=== PATIENT | male | born 1980 | race Caucasian/White ===

== ENCOUNTER 2017-05-21 12:37 | Emergency (ER) | payer BC ==
[~2017-05-21] VITALS: Ht 175.3 cm; Wt 77.1 kg
[~2017-05-21 12:37] MED LIST: DEPAKOTE PO; MOBIC7.5 MG/5 M PO; PENICILLIN V P500 MG PO; PROZAC PO; ROBAXIN500 MG PO
[2017-05-21] MEDS ORDERED: PROZAC40 M1 PO (13:41)
[2017-05-21] MEDS ORDERED: GEODON20 MG PO (13:42)
[2017-05-21] MEDS ORDERED: AMOXICILLIN875 MG PO (13:42)
[2017-05-21 14:23] LABS: SALICYLATE <4.0 mg/dL
[2017-05-21 14:25] LABS: ACETAMINOPHEN <10 ug/mL
== END 2017-05-21 18:08 | disposition short-term general hospital (02) ==
LOC: CED 12:37
PROVIDERS: Emergency Medicine
DX: T42.4X2A Poisoning by benzodiazepines, intentional self-harm, initial encounter (principal); S61.512A Laceration without foreign body of left wrist, initial encounter; F32.9 Major depressive disorder, single episode, unspecified; F17.200 Nicotine dependence, unspecified, uncomplicated; Z79.899 Other long term (current) drug therapy; X83.8XXA Intentional self-harm by other specified means, initial encounter; Y92.9 Unspecified place or not applicable
CPT/HCPCS: 36415; 99285; G0480

== ENCOUNTER 2017-05-21 14:00 | Inpatient (IN) | payer BC ==
[~2017-05-21] VITALS: Ht 175.3 cm; Wt 77.1 kg
--- NOTE | ~2017-05-21 | PN ---
Unit #: [id number] #: [id number] Patient: RITU JEFF [id number] [facility] [address] [place] [address] [id number] I MR#: [id number] NAME: RITU JEFF ROOM: P256 Age: 36 Sex: M Admission Date: 05/21/2017 : 1980 Attending Physician: Mariluz Sevilla M.D. Admitting Physician: Mariluz Sevilla M.D. Primary Care Physician: Rubina Guerra PROGRESS NOTES DATE OF SERVICE 05/24/2017 DISCUSSION Mr. Jeff is a 36-year-old white male who was seen today. Chart was reviewed and case was discussed with the staff. He has been anxious, withdrawn, and rather seclusive to himself. Meanwhile, he has been cooperative with the treatment recommendations and has been taking the medications and tolerating them fairly well. MENTAL STATUS EXAMINATION Young white male who is casually dressed with fair personal hygiene, appears to be in no acute distress or discomfort. He was awake and alert with impaired attention and concentration. His mood is anxious with congruent affect. He denies any suicidal or homicidal ideations. His insight and judgment remain slightly impaired. TREATMENT PLAN 1. We will continue him on his current treatment protocol. We will monitor his response to the medications and make further adjustments as needed. 2. We will continue to follow up. Dictated by... Mariluz Sevilla M.D. IAA/bzg TD: 05/25/2017 08:37 JOB #: [id number] [facility] PROGRESS NOTES Page 1 of 1 X Mariluz Sevilla MD X PROGRESS NOTE
--- NOTE | ~2017-05-21 | PN ---
Unit #: [id number] #: [id number] Patient: RITU JEFF [id number] [facility] [address] [place] [address] [id number] MR#: [id number] NAME: RITU JEFF ROOM: P256 Age: 36 Sex: M Admission Date: 05/21/2017 : 1980 Attending Physician: Mariluz Sevilla M.D. Admitting Physician: Mariluz Sevilla M.D. Primary Care Physician: Rubina Guerra PROGRESS NOTES DATE 05/22/2017 DISCUSSION Mr. Jeff is a 36-year-old, white male with mood disorder who was seen today and chart was reviewed and case was discussed with the staff. He remains anxious, withdrawn, depressed and rather seclusive to himself with blunted affect and minimal interaction. Meanwhile, he has been taking medication and tolerating them fairly with no reported side effects. MENTAL STATUS EXAM Young white male who was casually dressed with fair personal hygiene, appears to be in no acute distress or discomfort. He was awake and alert on interaction with intact orientation. His mood was anxious with congruent affect. He denies any suicidal or homicidal ideation. His insight and judgement remains slightly impaired. TREATMENT PLAN 1. We will continue him on his current medications and treatment protocol. We will monitor his response to the medication and make further adjustments as needed. 2. We will continue to follow up. Dictated by... Rubina Murrieta/aiden TD: 05/23/2017 04:34 JOB #: [id number] Unit #: [id number] #: [id number] Patient: RITU JEFF PROGRESS NOTES Page 1 of 1 X Mariluz Sevilla MD X PROGRESS NOTE
--- NOTE | ~2017-05-21 | PN ---
Unit #: [id number] #: [id number] Patient: RITU JEFF [id number] [facility] [address] [place] [address] [id number] I MR#: [id number] NAME: RITU JEFF ROOM: P256 Age: 36 Sex: M Admission Date: 05/21/2017 : 1980 Attending Physician: Mariluz Sevilla M.D. Admitting Physician: Mariluz Sevilla M.D. Primary Care Physician: Rubina Guerra PROGRESS NOTES DATE 05/23/2017 DISCUSSION Mr. Jeff is a 36-year-old white male with mood disorder who was seen today and chart was reviewed and case was discussed with the staff. He has been anxious, withdrawn and rather seclusive to himself. Meanwhile, he has been cooperative with treatment recommendations and has been taking medications and tolerating them fairly well with no reported side effects. MENTAL STATUS EXAMINATION Young white male who was casually dressed with fair personal hygiene and appears to be in no acute distress or discomfort. He was awake and alert with intact orientation. His mood was anxious with congruent affect. He denies any suicidal or homicidal ideation and also denies any auditory or visual hallucinations. His insight and judgement remains slightly impaired. TREATMENT PLAN 1. Will continue on current medications and treatment protocol. Will monitor her response to the medications and make further adjustments as needed. 2. Will continue to follow up. Dictated by... Rubina Murrieta/vito TD: 05/23/2017 17:49 JOB #: [id number] Unit #: [id number] #: [id number] Patient: RITU JEFF PROGRESS NOTES Page 1 of 1 X Mariluz Sevilla MD X PROGRESS NOTE
--- NOTE | ~2017-05-21 | HP ---
Unit #: [id number] #: [id number] Patient: RUDDY DAVIS [id number] [place] [address] [id number] I MR#: [id number] NAME: RUDDY DAVIS ROOM: P256 Age: 36 Sex: M Admission Date: 05/21/2017 : 1980 Attending Physician: Mariluz Sevilla M.D. Admitting Physician: Mariluz Sevilla M.D. Primary Care Physician: Iveth Love M.D. HISTORY AND PHYSICAL HISTORY OF PRESENT ILLNESS Ruddy is a 36-year-old male admitted on 05/21/[address] [place] [address] for attempted suicide by cutting his wrist and overdosing on Meloxicam and alcohol. PAST MEDICAL HISTORY History of ADHD and bipolar disorder. PAST SURGICAL HISTORY Bilateral knee, surgical repairs after injuries. SOCIAL HISTORY Smokes 1 pack of cigarettes daily. Occasional alcohol use. No illegal drug use. He is currently single and living with his mother. FAMILY HISTORY Noncontributory. REVIEW OF SYSTEMS CONSTITUTIONAL: No fever or chills. HEENT: Denies any sore throat, ear pain or runny nose. CARDIOVASCULAR: Denies chest pain, irregular heart rhythm or palpitations. CHEST: Denies shortness of breath or cough. No hemoptysis. GASTROINTESTINAL: Denies nausea, vomiting, diarrhea or chronic constipation. ENDOCRINE: Denies history of increased thirst or urination. No recent significant weight loss or gain. GENITOURINARY: Denies dysuria, frequency, or hematuria. SKIN: Denies any rashes. HEMATOLOGIC: Denies history of increased bleeding or bruising. MUSCULOSKELETAL: Denies any hot, swollen joints. No generalized muscle pain. NEUROLOGIC: Denies problems with vision or speech. No frequent, severe headaches. No numbness, tingling or weakness in any extremities. Denies loss of bladder or bowel control. CURRENT MEDICATIONS Prozac, amoxicillin, and Geodon. ALLERGIES No known drug allergies. PHYSICAL EXAMINATION Unit #: [id number] #: [id number] Patient: RUDDY DAVIS GENERAL: Alert, oriented, no acute distress. VITAL SIGNS: Blood pressure 127/75, heart rate 67, respirations 16, temperature 98.7. HEIGHT: 5 feet 9. WEIGHT: 170 pounds. SKIN: Warm, dry. No rashes or lesions, track valentine, cuts, etc. HEENT: Normocephalic. TMs not viewed. Oronasal passages clear. Conjunctivae clear. PERRLA. EOM is intact. NECK: No lymphadenopathy or thyromegaly. HEART: Regular rate and rhythm. No murmur, gallop, or rub. LUNGS: Clear to auscultation bilaterally. ABDOMEN: Soft, nontender without palpable masses or hepatosplenomegaly. : Not assessed. EXTREMITIES: No evidence of cyanosis, clubbing, or edema. Moves all extremities independently without obvious deficit. NEUROLOGICAL: Grossly within normal limits. Cranial Nerves: II: Visual muse are intact. III, IV AND : Extraocular movements are intact. Pupils are equal, round and reactive to light. V: Facial sensation is grossly normal. VII: Facial movements and expression are normal. VIII: Auditory acuity grossly intact. IX, X: Uvula is midline. Phonation is normal. XI: Patient shrugs shoulders and turns head normally. XII: Tongue protrudes in the midline. Sensory and Motor Function: Sensory and motor sensation is grossly normal. Motor: moves all extremities well. Coordination: Gait is normal. Deep Tendon Reflexes: Intact. IMPRESSION 1. Psychiatric admission. 2. Attention deficit hyperactivity disorder. 3. Bipolar disorder. RECOMMENDATIONS PSYCHIATRIC: Per psychiatrist. MEDICAL: No contraindication to participating in this facility's activities. MEDICAL PROGNOSIS Good. MEDICAL CONDITION Stable. Dictated by... Eliu Cárdenas TD: 05/22/2017 09:56 JOB #: [id number] Unit #: [id number] #: [id number] Patient: RUDDY DAVIS HISTORY AND PHYSICAL Page 1 of 1 X SHELLIE TAYLOR APRN HISTORY AND PHYSICAL
--- NOTE | ~2017-05-21 | PA ---
Unit #: [id number] #: [id number] Patient: RITU JEFF [id number] [facility] [address] [place] [address] [id number] MR#: [id number] NAME: RITU JEFF ROOM: P256 Age: 36 Sex: M Admission Date: 05/21/2017 : 1980 Date of Assessment: Attending Physician: Mariluz Sevilla M.D. Admitting Physician: Mariluz Sevilla M.D. Primary Care Physician: Iveth Love M.D. PSYCHIATRIC ASSESSMENT DATE OF SERVICE 05/22/2017. IDENTIFYING DATA Mr. Jeff is a 36-year-old single white male, who is a resident of [place], [place], and was transferred to us from [facility] Emergency Room. CHIEF COMPLAINT "Suicide attempt." HISTORY OF PRESENT ILLNESS Mr. Jeff is a 36-year-old white male, who was brought to the hospital emergency room via ambulance after he attempted suicide and he took the remainder of his bottle of lorazepam and was drinking bourbon and then he cut his wrist and stated "I just on the merry go round of fucking emotions in my head to stop." He reports increasing depression, poor support system, multiple psychosocial issues and stressors with feelings of hopelessness and helplessness. He reports that his girlfriend broke up with him and she learned of his suicide attempt and that he has been having financial stressors and has no support system and reports suicidal ideations and that it was a failed attempt and was still expressing feelings of hopelessness and suicidal ideation and as such, recommendation for inpatient level of care for safety and stabilization was made and he was medically cleared in the emergency room at [facility] and was transferred to us. SUBSTANCE ABUSE HISTORY The patient reports history of experimentation and abuse of alcohol and cannabis. PAST PSYCHIATRIC HISTORY The patient has not had any prior inpatient psychiatric hospitalization. He has been diagnosed and treated for bipolar disorder. Review of the medical records indicate that he is supposed to be on Prozac and Geodon, but is not clear if he has been compliant with the medication as he does not appear to be showing a therapeutic response. PAST MEDICAL HISTORY No acute or chronic medical illness. ALLERGIES No known medication allergies. Unit #: [id number] #: [id number] Patient: RITU JEFF PERSONAL AND SOCIAL HISTORY A 36-year-old white male, who reports that he is single, unemployed, and lives alone and has poor social support system. MENTAL STATUS EXAMINATION Young white male who was casually dressed with fair personal hygiene, appears to be in no acute distress or discomfort. He was awake and alert on interaction with intact orientation to time, place, and person. His mood was anxious and depressed with a congruent affect. His speech was slow and restricted in content. His thought processes were disorganized with some looseness of associations and suicidal ideations. His insight and judgment remain significantly impaired. DIAGNOSTIC IMPRESSION Psychiatric: Bipolar disorder, most recent episode depressed, recurrent, moderate, without psychotic features; alcohol abuse, moderate; cannabis abuse, moderate. Medical: None. Stressors: Moderate psychosocial stressors. TREATMENT PLAN 1. The patient has presented with history of mood disorder and has been decompensating and will need inpatient hospitalization for safety and stabilization. We will start him back on his home medications. We will adjust the medications and monitor response. 2. Supportive therapy was provided to the patient. 3. Safe, structured, and nourishing environment will be provided. ESTIMATED LENGTH OF STAY 5 to 7 days. ABILITY TO HELP SELF Limited. WILLINGNESS TO HELP SELF The patient appears to be willing to help self. STRENGTHS 1. Communicative. 2. Cooperative. PROBLEMS 1. Chronic dysphoric symptoms. 2. Poor social support system. DISCHARGE CRITERIA This will be contingent upon the patient's ability to show resolution of his depression and anxiety and his ability to stay safe to himself, particularly after discharge from the hospital. Dictated by... Mariluz Sevilla M.D. HARPREET/bita TD: 05/22/2017 08:30 Unit #: [id number] #: [id number] Patient: RITU JEFF JOB #: [id number] PSYCHIATRIC ASSESSMENT Page 1 of 1 X Mariluz Sevilla MD X PSYCHIATRIC ASSESSMENT
--- NOTE | ~2017-05-21 | DS ---
Unit #: [id number] #: [id number] Patient: RITU JEFF [id number] [facility] [address] [place] [address] [id number] I MR#: [id number] NAME: RITU JEFF ROOM: P256 Age: 36 Sex: M Admission Date: 05/21/2017 : 1980 Discharge Date: 05/25/2017 Attending Physician: Mariluz Sevilla M.D. Primary Care Physician: Iveth Love M.D. DISCHARGE SUMMARY IDENTIFYING DATA Mr. Jeff is a 36-year-old, single, white male, who is a resident of [place], [place], and was transferred to us from [facility]. DISCHARGE DIAGNOSES Psychiatric: Bipolar disorder, most recent episode depressed, recurrent, moderate, without psychotic features; alcohol abuse, moderate; cannabis abuse, moderate. Medical: None. Stressors: Moderate psychosocial stressors. HISTORY OF PRESENT ILLNESS Please see initial psychiatric evaluation for details. PAST PSYCHIATRIC HISTORY Please see initial psychiatric evaluation for details. PAST MEDICAL HISTORY Please see initial psychiatric evaluation for details. HOSPITAL COURSE The [facility] and was oriented to the hospital environment. Routine p.r.n. medications were initiated, and he was started back on his home medications and he stated that he has done good on a combination of Depakote and Prozac in the past and as such, Depakote and Prozac were initiated and Seroquel was also given and medications were just titrated and regulated and was closely monitored. He was taking the medications regularly and tolerating them fairly well and was able to show a decent therapeutic response and as such, it was decided that he will be discharged home and will continue treatment on an outpatient basis. DISCHARGE MEDICATIONS Depakote 500 mg b.i.d. for bipolar, Seroquel 50 mg at bedtime for bipolar, Prozac 40 mg a day for depression. DISCHARGE CONDITION Stable. PROGNOSIS Unit #: [id number] #: [id number] Patient: RITU JEFF Fair. Dictated by... Rubina Murrieta/kamlal TD: 05/25/2017 07:46 JOB #: [id number] DISCHARGE SUMMARY Page 1 of 1 X Mariluz Sevilla MD DISCHARGE SUMMARY
[~2017-05-21 14:00] MED LIST changes: +AMOXICILLIN875 MG PO; +GEODON20 MG PO; +PROZAC40 M1 PO
[2017-05-22 09:37] LABS: BASOPHIL# 0.1 X10e3 (0-0.3); BASOPHIL% 0.5 % (0-2.5); EOSINOPHIL# 0.3 X10e3 (0-0.7); EOSINOPHIL% 2.7 % (0.0-7.0); HEMATOCRIT 40.5 % (38.0-50.0); HEMOGLOBIN 13.4 gm/dL (13.0-16.0); LYMPHOCYTE# 3.4 X10e3 (1.0-3.5); MEAN CELL VOLUME 92.4 FL (83-96); MEAN CORPUSCULAR HEMOGLOBIN 30.5 PG (28-34); MEAN PLATELET VOLUME 8.1 FL (6.5-11.5); MONOCYTE# 0.9 X10e3 (0-1.0); NEUTROPHIL# 5.7 X10e3 (1.5-7.1); NEUTROPHIL% 54.8 % (40-75); PLATELET COUNT 283 X10e3 (140-420); RED BLOOD COUNT 4.39 X10e (3.90-5.60); RED CELL DISTRIBUTION WIDTH 13.6 % (11.0-15.5); WHITE BLOOD COUNT 10.4 X10e3 (4.0-10.5)
[2017-05-22 09:39] LABS: DIFF IND NO
[2017-05-22 09:42] LABS: URINE APPEARANCE TURBID; URINE BILIRUBIN NEG (NEG); URINE BLOOD NEG (NEG); URINE COLOR DK YELLOW; URINE GLUCOSE NEG (NEG); URINE KETONE NEG (NEG); URINE LEUKOCYTE ESTERASE NEG (NEG); URINE NITRATE NEG (NEG); URINE PROTEIN NEG (NEG); URINE SPECIFIC GRAVITY 1.033 (1.003-1.035); URINE UROBILINOGEN 0.2 MG/DL (NEG)
[2017-05-22 10:27] LABS: AMPHETAMINE NEG (NEG); BARBITURATES NEG (NEG); BENZODIAZEPINES POS (NEG); COCAINE NEG (NEG); MARIJUANA POS (NEG); OPIATES NEG (NEG); TRICYCLIC ANTIDEPRESSANTS NEG (NEG); U METHADONE NEG (NEG)
[2017-05-22 10:49] LABS: BILIRUBIN,TOTAL 0.6 mg/dL (0.2-2.0); BUN/CREATININE RATIO 21.11; CALCIUM SERUM 9.4 mg/dL (8.4-10.2); CREATININE SERUM 0.9 mg/dL (0.6-1.4); POTASSIUM 3.8 mmol/L (3.5-5.1); PROTEIN TOTAL SERUM 6.7 g/dL (6.0-8.3)
== END 2017-05-25 10:30 | disposition home or self-care (01) | DRG 885 ==
LOC: P2L 18:21
PROVIDERS: Psychiatry & Neurology Psychiatry
DX: F31.32 Bipolar disorder, current episode depressed, moderate (principal); R45.851 Suicidal ideations; F10.20 Alcohol dependence, uncomplicated; F12.20 Cannabis dependence, uncomplicated; Z91.5 Personal history of self-harm; F90.9 Attention-deficit hyperactivity disorder, unspecified type; F17.210 Nicotine dependence, cigarettes, uncomplicated
CPT/HCPCS: 80053; 80307; 81003; 85025